=== PATIENT | female | born 1965 | race Caucasian/White ===

== ENCOUNTER 2017-05-20 20:17 | Emergency (ER) | payer OTHER ==
[2017-05-20 21:57] LABS: Hematocrit 40 % (35-47); Hemoglobin 13.6 g/dl (12.0-16.0); Mean Corpuscular HGB Conc 34 g/dl (31-36); Mean Corpuscular Hemoglobin 31 pg (27-31); Mean Corpuscular Volume 89 fL (80-97); Mean Platelet Volume 10 um3 (7.4-10.4); Red Blood Count 4.45 10^6/ul (4.0-5.4); Red Cell Distribution Width 14 % (10.5-15); White Blood Count 8.7 10^3/ul (3.5-10.8)
[2017-05-20 22:11] LABS: Albumin 4.1 g/dL (3.2-5.2); BUN/Creatinine Ratio 16.3 (8-20); Calcium 9.3 mg/dL (8.6-10.3); EGFR African American 96.9 (>60); EGFR Non-African American 75.3 (>60); Globulin 2.8 g/dL (2-4); Potassium 3.6 mmol/L (3.5-5.0); Total Bilirubin 0.7 mg/dL (0.2-1.0); Total Protein 6.9 g/dL (6.4-8.9)
[2017-05-20] MEDS ORDERED: Ketorolac INJ* 30 MG/ML 1 ML VIAL IV ONE (23:02)
[2017-05-20] MEDS ORDERED: NS 0.9% 1000 ML* 2,000 ML IV ONE (23:02)
[2017-05-20] MEDS ORDERED: Ondansetron INJ* 2 MG/ML VIAL IV ONE (23:02)
[2017-05-20] MEDS ORDERED: Morphine INJ* 4 MG/ML 1 ML SYRINGE IV ONE (23:02)
[2017-05-21 01:53] VITALS: BP 115/68
[2017-05-21 02:12] LABS: Urine Bacteria 1+ (Absent); Urine Bilirubin Negative (Negative); Urine Glucose Negative (Negative); Urine Nitrite Negative (Negative)
[2017-05-21] MEDS ORDERED: Levofloxacin TAB* 500 MG PO ONE (02:30)
[2017-05-21] MEDS ORDERED: oxyCODONE/Acetamin 5/325 MG* TAB PO ONE (02:30)
--- NOTE | 2017-05-21 04:55 | ED ---
Pura Juarez Rebecca, scribed for Apple Cooperuel on 05/20/17 at 2303 . Abdominal Pain/Female - HPI Summary HPI Summary: Pt is a 51 y/o F who presents to ED c/o L flank pain. Pain began suddenly yesterday afternoon and has been intermittent since onset. Pain is currently severe, ranked 8/10. Sx aggravated by movement, alleviated by nothing. Additionally c/o SOB secondary to pain. Denies hematuria, CP, rash and fever. PMHx kidney stone. - History of Current Complaint Chief Complaint: EDAbdPain Stated Complaint: PAIN IN LT SIDE/NAUSEA Time Seen by Provider: 05/20/17 22:55 Hx Obtained From: Patient Hx Last Menstrual Period: 06/10/14 Onset/Duration: Sudden Onset, Lasting Days - Began yesterday, Still Present Timing: Intermittent Episode Lasting Severity Currently: Severe Pain Intensity: 8 Pain Scale Used: 0-10 Numeric Location: Flank - Left Aggravating Factor(s): Movement Alleviating Factor(s): Nothing Associated Signs and Symptoms: Positive: Other: - SOB - secondary to pain. Negative: Fever, Chest Pain Allergies/Adverse Reactions: Allergies Allergy/AdvReac Type Severity Reaction Status Date / Time Benzocaine Allergy Rash Verified 05/20/17 20:39 Procaine [From Novocain] Allergy Unknown Verified 05/20/17 20:39 Reaction Details PMH/Surg Hx/FS Hx/Imm Hx Endocrine/Hematology History: Denies: Hx Diabetes, Hx Systemic Lupus Erythematosus Cardiovascular History: Reports: Hx Hypertension Denies: Hx Congestive Heart Failure Respiratory History: Reports: Hx Asthma History: Reports: Hx Kidney Stones Denies: Hx Dialysis, Hx Renal Disease Musculoskeletal History: Denies: Hx Rheumatoid Arthritis - Cancer History Hx Chemotherapy: No Hx Radiation Therapy: No - Surgical History Surgery Procedure, Year, and Place: Left Arthroscopy, 2009, [facility] [place] [facility] 1988 Infectious Disease History: No Infectious Disease History: Denies: Traveled Outside the [place] in Last 30 Days - Family History Known Family History: Positive: Hypertension - Social History Alcohol Use: Occasionally Substance Use Type: Reports: None Smoking Status (MU): Former Smoker Type: Cigarettes Amount Used/How Often: 1/2 PPD Length of Time of Smoking/Using Tobacco: 10 Years Have You Smoked in the Last Year: No Review of Systems Negative: Fever Negative: Chest Pain Positive: Shortness Of Breath - secondary to pain Positive: Abdominal Pain - L flank pain Negative: hematuria Negative: Rash All Other Systems Reviewed And Are Negative: Yes Physical Exam - Summary Physical Exam Summary: Appearance: Well appearing, no pain distress Skin: warm, dry, reflects adequate perfusion Head/face: normal Eyes: EOMI, SARIAH ENT: normal Neck: supple, nontender Respiratory: CTA, breath sounds present Cardiovascular: RRR, pulses symmetrical Abdomen: Tenderness in the L flank, soft Bowel: present Musculoskeletal: normal, strength/ROM intact Neuro: normal, sensory motor intact, A&Ox3 Triage Information Reviewed: Yes Vital Signs On Initial Exam: Initial Vitals Temp Pulse Resp BP Pulse Ox 98 F 63 16 144/80 100 05/20/17 20:41 05/20/17 20:41 05/20/17 20:41 05/20/17 20:41 05/20/17 20:41 Vital Signs Reviewed: Yes Diagnostics - Vital Signs Vital Signs Temp Pulse Resp BP Pulse Ox 05/20/17 20:41 98 F 63 16 144/80 100 - Laboratory Lab Results: Lab Results 05/20/17 05/20/17 05/20/17 Range/Units 21:44 21:44 21:44 WBC 8.7 (3.5-10.8) 10^3/ul RBC 4.45 (4.0-5.4) 10^6/ul Hgb 13.6 (12.0-16.0) g/dl Hct 40 (35-47) % MCV 89 (80-97) fL MCH 31 (27-31) pg MCHC 34 (31-36) g/dl RDW 14 (10.5-15) % Plt Count 245 (150-450) 10^3/ul MPV 10 (7.4-10.4) um3 Neut % (Auto) 56.1 (38-83) % Lymph % (Auto) 32.4 (25-47) % [place] % (Auto) 7.5 (1-9) % Eos % (Auto) 2.9 (0-6) % Baso % (Auto) 1.1 (0-2) % Absolute Neuts (auto) 4.9 (1.5-7.7) 10^3/ul Absolute Lymphs (auto) 2.8 (1.0-4.8) 10^3/ul Absolute Monos (auto) 0.7 (0-0.8) 10^3/ul Absolute Eos (auto) 0.3 (0-0.6) 10^3/ul Absolute Basos (auto) 0.1 (0-0.2) 10^3/ul Absolute Nucleated RBC 0 10^3/ul Nucleated RBC % 0 INR (Anticoag Therapy) 0.87 L (0.89-1.11) APTT 29.0 (26.0-36.3) seconds Sodium 135 (133-145) mmol/L Potassium 3.6 (3.5-5.0) mmol/L Chloride 102 (101-111) mmol/L Carbon Dioxide 27 (22-32) mmol/L Anion Gap 6 (2-11) mmol/L BUN 13 (6-24) mg/dL Creatinine 0.80 (0.51-0.95) mg/dL Est GFR ( Amer) 96.9 (>60) Est GFR (Non-Af Amer) 75.3 (>60) BUN/Creatinine Ratio 16.3 (8-20) Glucose 103 H (70-100) mg/dL Calcium 9.3 (8.6-10.3) mg/dL Total Bilirubin 0.70 (0.2-1.0) mg/dL AST 14 (13-39) U/L ALT 11 (7-52) U/L Alkaline Phosphatase 89 (34-104) U/L Troponin I 0.00 (<0.04) ng/mL Total Protein 6.9 (6.4-8.9) g/dL Albumin 4.1 (3.2-5.2) g/dL Globulin 2.8 (2-4) g/dL Albumin/Globulin Ratio 1.5 (1-3) Lipase 18 (11.0-82.0) U/L Beta HCG, Quant 3.41 mIU/mL Result Diagrams: 05/20/17 21:44 05/20/17 21:44 Lab Statement: Any lab studies that have been ordered have been reviewed, and results considered in the medical decision making process. - CT CT Abd/Pel CT Interpretation: No Acute Changes - No acute abnormality noted. Additional, non-acute abnormalities as described above. ED physician reviewed this radiology report and agrees. CT Interpretation Completed By: Radiologist Re-Evaluation - Re-Evaluation First Eval Re-Evaluation Time: 02:30 Comment: Discussed results and plan to D/C. Abdominal Pain Fem Course/Dx - Course Course Of Treatment: Pt is a 51 y/o F who presents to ED c/o L flank pain. Pain began suddenly yesterday afternoon and has been intermittent since onset. Pain is currently severe, ranked 8/10. Sx aggravated by movement, alleviated by nothing. Additionally c/o SOB secondary to pain. Denies hematuria, CP, rash and fever. PMHx kidney stone. CT Abd/Pel reveals no acute findings. Blood work and UA were completed. In the ED course, pt received morphine, zofran, toradol, levaquin and percocet. She will be D/C to home with Dx of UTI and flank pain and Rx for motrin and levaquin and a follow up with her PCP. She understands and agrees. Elevated BP noted and advised to f/u with PCP. - Diagnoses Provider Diagnoses: UTI (urinary tract infection), Flank pain Discharge - Discharge Plan Condition: Stable Disposition: HOME Prescriptions: Ibuprofen TAB* [Motrin TAB* 600 MG] 600 mg PO Q8H PRN #20 tab MDD 3 PRN Reason: Pain Levofloxacin TAB* [Levaquin TAB*] 500 mg PO DAILY #6 tab Patient Education Materials: Urinary Tract Infection in Women (ED), Flank Pain (ED) Referrals: Rupinder Noyola MD [Primary Care Provider] - 3 Days The documentation as recorded by the Pura arteaga Rebecca accurately reflects the service I personally performed and the decisions made by , Jeffrey Cooper.
--- NOTE | 2017-05-21 07:50 | RAD ---
CLINICAL HISTORY: Left flank pain COMPARISON: August 03, 2014 TECHNIQUE: Multiple contiguous axial CT scans were obtained of the abdomen and pelvis, without intravenous contrast enhancement. Coronal and sagittal multiplanar reformations are submitted for review. Oral contrast was not administered. The study is limited by the lack of intravenous contrast. This limits evaluation of the solid organs and vasculature. FINDINGS: LUNG BASES: The lung bases are clear. LIVER: The liver is normal in shape, size, contour, and attenuation. BILE DUCTS: There is no intrahepatic or extrahepatic biliary dilatation. GALLBLADDER: The gallbladder is normal, without pericholecystic inflammatory change. PANCREAS: The pancreas is normal, without mass or ductal dilatation. SPLEEN: Normal in size and appearance. UPPER GI TRACT: Evaluation of the gastrointestinal tract is limited by incomplete gastric distention. The upper GI tract is unremarkable. SMALL BOWEL AND MESENTERY: The small bowel is normal in contour, course, and caliber. There is no obstruction or dilatation. COLON: There are scattered diverticula of the sigmoid colon. ADRENALS: Normal bilaterally. KIDNEYS: The kidneys are normal in shape, size, contour, and axis. There is no hydronephrosis or nephrolithiasis. BLADDER: The bladder is collapsed and is not well evaluated PELVIC ORGANS: The uterus and adnexa are grossly normal for technique. AORTA: The aorta is normal. IVC: Unremarkable LYMPH NODES: There is no lymphadenopathy by size criteria. ABDOMINAL WALL: There is no evidence for abdominal wall hernia. BONES AND SOFT TISSUES: Degenerative changes are noted of the spine OTHER: None IMPRESSION: 1. NO HYDRONEPHROSIS OR NEPHROLITHIASIS. 2. SCATTERED DIVERTICULA OF THE SIGMOID COLON
== END 2017-05-21 02:50 | disposition home or self-care (01) ==
LOC: ED 20:17
DX: N39.0 Urinary tract infection, site not specified (principal); R10.84 Generalized abdominal pain; R06.2 Wheezing; Z87.891 Personal history of nicotine dependence
CPT/HCPCS: 36415; 74176; 80053; 81003; 81015; 83690; 84484; 84702; 85025; 85610; 85730; 87086; 96374; 96375; 99283; A9270-GY; J1885; J2270; J2405

== ENCOUNTER 2019-10-27 15:14 | Emergency (ER) | payer BC, OTHER ==
--- OUTSIDE RECORDS SUMMARY | 2019-10-27 15:19 | XMS REPORT | Continuity of Care Document ---
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- DENSE, NORMAL LPa Family history of malignant neoplasm of Rupinder Noyola MD Onset: 2004 gastrointestinal tract Family history of ischemic heart disease Rupinder Noyola MD Onset: 2004 Obesity Rupinder Noyola MD Onset: 10/28/2004 Family history of hemochromatosis Rupinder Noyola MD Onset: 04/21/2014 Note: 2 brothers, carrier by hfe Family history of polyp of colon Rupinder Noyola MD Onset: 05/10/2015 Note: brother polyp- Anxiety Rupinder Noyola MD Onset: 11/27/2016 Non-celiac gluten sensitivity Rupinder Noyola MD Onset: 04/01/2019 Aortic valve regurgitation Rupinder Noyola MD Onset: 04/18/2019 Note: mild-moderate Social History Type Date Description Comments Sex Unknown ETOH Use Occasionally consumes alcohol Tobacco Use Start: Unknown Patient has never smoked Smoking Status Reviewed: 06/29/19 Patient has never smoked Allergies, Adverse Reactions, Alerts Description No Information Available Medications Active Medications SIG Qnty Indications Ordering Date Provider Amoxicillin/Clavulan put in patient 20tabs J06.9 [facility], 10/13/2019 ate Potassium file,fill when MD Rupinder patient requests 1 875-125mg Tablets by mouth twice a day wm, take probiotic while on Prednisone 2 by mouth every 6tabs J06.9 [facility], 10/13/2019 20mg in the morning for MD Rupinder Tablets 3d Albuterol Sulfate put in patient 1units T78.40xA [facility], 04/01/2019 HFA file,fill when MD Rupinder 108(90Base) patient requests mcg/Act Aerosol 2 puffs qid prn shortness of breath Breo Ellipta inhale 1 90units [facility], 12/01/2018 inhalation once MD Rupinder 100-25mcg/Inh daily Aerosol Montelukast Sodium Take 1 Tablet AT 90tabs [facility], 03/11/2014 Bedtime MD Rupinder 10mg Tablets Fluoxetine HCL Take One Capsule 90caps Jazmín, 08/19/2012 10mg By Mouth Every Day MD Rupinder Capsules Benazepril take 1 tablet by 90tabs [facility], 04/02/2012 HCL/Hydrochlorothiaz mouth every day MD Rupinder antoni 20-12.5mg Tablets History Medications Nitrofurantoin one by mouth 20capBinh Ferrell, 07/02/2019 - Macrocrystal twice a day 07/12/2019 100mg Capsules Immunizations CPT Code Status Date Vaccine Lot # [id number] Given 10/01/2018 Influenza Vac, Quadrivalent, Split, 0.5mL Dosage, [id number] Im Use 05638 Given 05/10/2015 Tdap (Adacel) Ages 7 And Above Only [id number] Given 09/08/2013 Pneumococcal 23 Immunization Adult Or [id number] Immunosuppressed Patient [id number] Given 08/19/2012 Fluzone Trivalent Immunization [id number] Given 10/26/2009 Influenza Virus Vaccine Pandemic Formulation - [id number] 10148 Given 10/26/2009 Influenza Virus Vaccine Pandemic Formulation - [id number] 75786 Given 10/26/2009 Administration Swine Flu Vaccine [id number] 21053 Given 10/28/2004 Immunization Td 7 Yrs Or Older 57698 Given 08/22/2003 Afluria Or Fluvirin Flu Vac Intramuscular 30337 Given 08/22/2003 Afluria Or Fluvirin Flu Vac Intramuscular Vital Signs Date Vital Result Comment 10/13/2019 2:13pm Weight 177.00 lb BP Systolic 128 mmHg BP Diastolic 66 mmHg Height 60.5 inches 5'0.50" BMI (Body Mass Index) 34.0 kg/m2 06/29/2019 2:37pm Weight 172.00 lb BP Systolic 118 mmHg BP Diastolic 68 mmHg Height 60.5 inches 5'0.50" BMI (Body Mass Index) 33.0 kg/m2 Urine Dipstick - Blood 3+ Urine Dipstick - Protein NEGATIVE Urine Dipstick - Glucose NEGATIVE Urine Dipstick - Leukocytes TRACE Results Test Acquired Date Facility Test Result H/L Range Note Laboratory test 06/29/2019 [facility] Microbiology res Abnormal 1 finding Culture <SEE NOTE> 1 Microbiology results SOURCE Clean Catch Midstream COLONY COUNT >100,000 CFU/ML PRELIMINARY RESULT Gram Negative Derick. ID & Sensitivity to Follow. 06/30/2019 2:16 PM FINAL RESULT Escherichia coli (Isolate 1) Sensitivity Analysis Isolate 1 --------- AMIKACIN <=16 S AMOXICILLIN/CLAVULANATE <=8/4 S AMPICILLIN <=8 S AMPICILLIN/SULBACTAM <=8/4 S CEFAZOLIN <=2 S CEFEPIME <=8 S CEFOTAXIME <=2 S CEFTRIAXONE <=1 S CEFUROXIME <=4 S CIPROFLOXACIN <=1 S ERTAPENEM <=0.5 S GENTAMYCIN <=2 S IMIPENEM <=1 S LEVOFLOXACIN <=2 S NITROFURANTOIN <=32 S PIPERACILLIN/TAZOBACTAM <=16 S TETRACYCLINE <=4 S TOBRAMYCIN <=4 S TRIMETHOPRIM/SULFAMETHOXAZ <=2/38 S S=Sensitive;I=Indeterminate;R=Resistant Procedures Date Code Description Status 04/14/2019 32611 ECHO Transthoracis 2D W Spectral Doppler Completed 04/14/2019 54749 ECHO Transthoracis 2D W Spectral Doppler Completed 03/06/2017 [id number] Colonoscopy Completed 03/06/2016 [id number] Mammogram Completed 02/08/2015 [id number] Mammogram Completed 07/14/2014 [id number] Mammogram Completed 06/19/2009 [id number] Colonoscopy Completed Medical Devices Description No Information Available Encounters Type Date Location Provider Dx Diagnosis Office Visit 06/29/2019 [facility] Binh Noyola, E66.9 Obesity, unspecified 2:40p R30.0 Dysuria Z68.33 Body mass index (BMI) 33.0-33.9, adult Assessments Date Code Description Provider 10/13/2019 I10 Essential (primary) hypertension Rupinder Noyola MD 10/13/2019 J45.20 Mild intermittent asthma, uncomplicated Rupinder Noyola MD 10/13/2019 J06.9 Acute upper respiratory infection, Rupinder Noyola MD unspecified 10/13/2019 E66.9 Obesity, unspecified Rupinder Noyola MD 10/13/2019 Z68.34 Body mass index (BMI) 34.0-34.9, adult Rupinder Noyola MD 06/29/2019 E66.9 Obesity, unspecified Binh Noyola MD 06/29/2019 R30.0 Dysuria Binh Noyola MD 06/29/2019 Z68.33 Body mass index (BMI) 33.0-33.9, adult Binh Noyola MD 06/29/2019 R30.0 Dysuria [facility] 04/26/2019 R01.1 Cardiac murmur, unspecified Rupinder Noyola MD 04/14/2019 I10 Essential (primary) hypertension [facility] 04/14/2019 R01.1 Cardiac murmur, unspecified [facility] Plan of Treatment Future Appointment(s):05/15/2020 9:30 am - [facility] - Rupinder Noyola MDI10 Essential (primary) hypertensionComments :Patient was given literature on whole food plant based diet. 10 minutes discussion. patient was agreeable and interested in discussion. BP controlledmeds refilledFollow up:RTC 6 QYRTHZ41.20 Mild intermittent asthma, uncomplicatedComments:CONDITION STABLE- NO CHANGE CURRENT MEDSMedications xdbliuroU69.9 Acute upper respiratory infection, unspecifiedNew Medication: Amoxicillin/Clavulanate Potassium 875-125 mg - put in patient file,fill when patient requests 1 by mouth twice a day wm, take probiotic while onPrednisone 20 mg - 2 by mouth every in the morning for 3dComments:Discussed the viral nature of upper respiratory infections and possibility of evolution into a sinusinfection after 2 wks . We discussed using prophylactic 1000 mg vitamin C at the onset of a cold.I demonstrated Boby med Nasal saline irrigations and encouraged use. We discussed using no antihistamines and taking lots of showers , putting a humidifier in the bedroom, using Chloraseptic for sore throat and a decongestant such as Mucinex D plus Afrin as needed for 3 days for pressure symptoms. Wediscussed if the symptoms have lasted more than 10-14 days that this is more likely a sinus infection and call us back at that point. Also call immediately if a fever develops.E66.9 Obesity, mvselqxgflnW31.34 Body mass index (BMI) 34.0-34.9, adult Goals 10/13/2019 - Rupinder Noyola MDI10 Essential (primary) hypertensionContinue with currents meds. Continue low salt diet. Try to achieve ideal body weight if not alreadyat. Recheck by 6 month here. Take vit d 8439-2049 iu average daily. Bp goal is <140/90. Movies:Game Changers on Cart[employer]- focuses on athletic and health advantages of plant based nutrition Dr. Richey HEATH talk on [employer] titled "Food as Medicine" 20 min. How Not To : The Role of Diet in Preventing, Arresting, and Reversing Our Top 15 Killers" Dr. Monique, [employer]wite.[employer], 1 hour Anabel Over Knives documentary on Cartesian that investigates the Troy Study and also interviews Dr Unger and Carmenza, cardiac surgeons who have reversed coronary disease through [facility] nutrition. Ruthieon Swedish documentary 2018, narrated by Artur Root, exposes cruelty of modern animal agriculture, free on [employer]. Books: All below recommendations are available on [employer] (Audible if you prefer to listen). How Not to - Dr. Monique (2015). The Troy Study- revised 2016 Edition,- ( Audible is suggested) UnDo It- Dr Solitario Unger (2019) The Truth About Food - Dr David Parker Cookbooks: Vegan for Everybody by [employer] Kitchen -great,l but uses more oils; instructions and suggestions on staple products and substitutions The Troy Solution is a follow-up book that describes very well how to initiate a whole food plant based diet and its principles. Online: NutritionFacts.org is our Bible. Anonprofit, science-based public service by Dr Monique , providing free daily videos and articles on the latest in nutrition research. Search your interest and become an instant expert in 5 minutes watching his entertaining videos. Question on turmeric? Paleo? Fish oil? Coconut oil? Soy? Osteoporosis? etc. Functional Status Description No Information Available Mental Status Description No Information Available Referrals Refer to Reason for Referral Status Appt Date Kelvin Madsen MD patient would like to go to this location Scheduled 05/20/2019 for mild regurg [facility] at [place] [address] [place] [address] [facility] [address] [place] [address]. [address] [place] [address] [phone]
[2019-10-27 16:08] VITALS: BP 105/63
[2019-10-27 16:22] LABS: Influenza A Molecular POSITIVE (Negative)
--- NOTE | 2019-10-27 16:41 | UC ---
FLU HPI - HPI Summary HPI Summary: 54-year-old female comes in with chief complaint of influenza symptoms started overnight. She has fevers chills headache body aches. She tried some ibuprofen and that did help some with the symptoms. No complaint of any chest congestion or shortness of breath. - History of Current Complaint Chief Complaint: UCGeneralIllness Stated Complaint: FLU SYMP Time Seen by Provider: 10/27/19 16:03 Hx Last Menstrual Period: 06/10/14 Pain Intensity: 7 - Allergy/Home Medications Allergies/Adverse Reactions: Allergies Allergy/AdvReac Type Severity Reaction Status Date / Time benzocaine Allergy Rash Verified 10/27/19 16:09 procaine [From Novocain] Allergy Unknown Verified 10/27/19 16:09 Reaction Details Home Medications: Home Medications Cetirizine HCl [Zyrtec] 10 mg PO DAILY 10/27/19 [History Confirmed 10/27/19] Fluticasone NASAL SPRAY 50MCG* [Flonase NASAL SPRAY 50MCG*] 2 spray BOTH NARES DAILY 10/27/19 [History Confirmed 10/27/19] PMH/Surg Hx/FS Hx/Imm Hx Previously Healthy: Yes Cardiovascular History: Hypertension Respiratory History: Asthma - Surgical History Surgical History: Yes Surgery Procedure, Year, and Place: Left Arthroscopy, 2008, [facility] [place]. [facility]Se[facility], 1984 1988 - Family History Known Family History: Positive: Hypertension - Social History Alcohol Use: Occasionally Substance Use Type: None Smoking Status (MU): Former Smoker Type: Cigarettes Amount Used/How Often: 1/2 PPD Length of Time of Smoking/Using Tobacco: 10 Years Have You Smoked in the Last Year: No When Did the Patient Quit Smoking/Using Tobacco: 1985 Review of Systems All Other Systems Reviewed And Are Negative: Yes Constitutional: Positive: Fever, Chills, Other - see hpi Skin: Positive: Negative Eyes: Positive: Negative ENT: Positive: Nasal Discharge Respiratory: Positive: Negative Cardiovascular: Positive: Negative Gastrointestinal: Positive: Negative Motor: Positive: Negative Neurovascular: Positive: Negative Musculoskeletal: Positive: Myalgia Neurological: Positive: Headache Psychological: Positive: Negative Is Patient Immunocompromised?: No Physical Exam Triage Information Reviewed: Yes Appearance: No Pain Distress, Well-Nourished, Ill-Appearing - mild Vital Signs: Initial Vital Signs Temp 99.0 F 10/27/19 16:04 Pulse 65 10/27/19 16:04 Resp 14 10/27/19 16:04 BP 105/63 10/27/19 16:04 Pulse Ox 99 10/27/19 16:04 Vital Signs Reviewed: Yes Eye Exam: Normal Eyes: Positive: Conjunctiva Clear ENT: Positive: Pharynx normal, Nasal congestion, Nasal drainage, TMs normal Neck: Positive: Supple Respiratory: Positive: Lungs clear, Normal breath sounds, No respiratory distress Cardiovascular: Positive: RRR Musculoskeletal: Positive: Strength Intact, ROM Intact Neurological: Positive: Alert, Muscle Tone Normal Psychological: Positive: Age Appropriate Behavior Skin Exam: Normal Flu Course/Dx - Differential Dx/Diagnosis Provider Diagnosis: Influenza Discharge ED - Sign-Out/Discharge Documenting (check all that apply): Patient Departure All imaging exams completed and their final reports reviewed: No Studies - Discharge Plan Condition: Stable Disposition: HOME Prescriptions: Oseltamivir CAP* [Tamiflu CAP*] 75 mg PO BID #10 cap Patient Education Materials: Influenza (ED) Referrals: Jazmín RAMON,Rupinder Borges [Primary Care Provider] - Additional Instructions: FOLLOW UP WITH YOUR DOCTOR IF NOT COMPLETELY IMPROVED. GET RECHECKED SOONER IF YOUR CONDITION WORSENS OR ANY QUESTIONS OR CONCERNS. - Billing Disposition and Condition Condition: STABLE Disposition: Home
== END 2019-10-27 16:45 | disposition home or self-care (01) ==
LOC: UCCORT 15:14
DX: J11.1 Influenza due to unidentified influenza virus with other respiratory manifestations (principal); I10 Essential (primary) hypertension; J45.909 Unspecified asthma, uncomplicated; Z87.891 Personal history of nicotine dependence; Z88.4 Allergy status to anesthetic agent
CPT/HCPCS: 99212; G0463